=== PATIENT | male | born 1970 | race Caucasian/White ===

== ENCOUNTER 2024-04-22 10:18 | Outpatient (AMB) | payer BC, SELFPAY ==
[2024-04-22 10:50] VITALS: BP 120/70; PULSE 77; RESP 12; O2SAT 97; BMI 29.0
--- NOTE | 2024-04-22 10:50 | MHC.PC.OV ---
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 Patient reports he does not need refills at this time. Patient has a question regarding high cholesterol. Meeting/Event Planner Required: No Accompanied by: Spouse Followed by:: Jyoti Allergies No Known Allergies Allergy (Verified 04/22/24 10:57) Tobacco use date assessed: 04/22/24 Dental Screening Dental Screen Date: 04/22/24 Did you have a dental visit in the last 12 months?: Yes Did you have a dental problem in the last 6 months where you did not have access to dental care?: No Was dental information given to patient?: Patient has dentist HPI HPI Comments History of Present Illness Details The patient is a 54-year-old male with a past medical history of hyperlipidemia, hypertension, incomplete heart block hemorrhoids [facility] CV: He has a cardiology 09/2023 for chest discomfort and ALMANZA. This was thought to be musculoskeletal. As his blood pressure improved the symptoms seemed to cease. He is on lisinopril. BP at home 120s-140 systolic. He was taken off thiazide like diuretic due to hypokalemia Chronic tinnitus refer to ENT in November. Goes to [facility] for skin exams Had colonoscopy 12/26/2022. Repeat recommended in 10 years ROS CONSTITUTIONAL: Denies weight loss, fever and chills. HEENT: Denies changes in vision and hearing. RESPIRATORY: Denies SOB and cough. CV: Denies palpitations and CP GI: Denies abdominal pain, nausea, vomiting and diarrhea. : Denies dysuria and urinary frequency. MSK: Denies new myalgia and joint pain. SKIN: Denies rash and pruritus. NEUROLOGICAL: Denies headache. GOFF-behind eyes bilateral, snoring PSYCHIATRIC: Denies recent changes in mood. PHYSICAL EXAM: GENERAL: Alert and oriented x 3. NAD EYES: EOMI. Anicteric. HENT: Moist mucous membranes. No scleral icterus. No cervical lymphadenopathy. LUNGS: Clear to auscultation bilaterally. CARDIOVASCULAR: Regular rate and rhythm. No murmur. No JVD. ABDOMEN: Soft, non-tender +bs EXTREMITIES: No edema. Non-tender. SKIN: No rashes or lesions. Warm. NEUROLOGIC: No focal neurological deficits. CN II-XII grossly intact PSYCHIATRIC: Cooperative. Appropriate mood and affect [facility] Medical History (Updated 04/22/24 @ 13:39 by Lesly Ayers MD) Trigger finger, right middle finger Toenail fungus Incomplete RBBB Hemorrhoid Hypertension Surgical History No pertinent past surgical history Family History Mother Hypertension Father Hypertension Social History Household Members: Spouse Housing: House Alcohol intake: never Patient Tobacco Use Status: Former Tobacco user Tobacco use type: Cigarette Years Smoked: 7 e-Cigarette/Vaping Use: Never Used service: Yes Current occupational status: employed Current occupation: [employer] Current occupational exposures/hazards: No Cognitive needs: No Hearing needs: Yes Vision needs: Yes (Patient has seen the ophthalmology- September 2023) Questionnaire PHQ-9 Over the last 2 weeks, how often have you been bothered by any of the following problems? 1. Little interest or pleasure in doing things: not at all 2. Feeling down, depressed, or hopeless: not at all 3. Trouble falling or staying asleep, or sleeping too much: not at all 4. Feeling tired or having little energy: several days 5. Poor appetite or overeating: not at all 6. Feeling bad about yourself - or that you are a failure or have let yourself or your family down: not at all 7. Trouble concentrating on things, such as reading the newspaper or watching television: several days 8. Moving or speaking so slowly that other people could have noticed. Or the opposite - being so fidgety or restless that you have been moving around a lot more than usual: not at all 9. Thoughts that you would be better off or of hurting yourself in some way: not at all Total score: 2 Depression Screening Interpretation: Negative (neg) Depression Screening Done: Yes 73252 - PHQ-9 Billing: Yes Source: Developed by Drs. Major Welsh, Yessy Dominguez, Robin Webster and colleagues, with an educational ke from [employer]. Thrive Questionnaire Date Thrive assessed: 04/22/24 I am a: Patient What is your living situation today?: I have a steady place to live Within the past 12 months, did the food you bought not last and you didn't have the money to get more?: Never true Within the past 12 months, did you worry whether your food would run out before you got money to buy more?: Never true Do you have trouble paying for medicines?: No Do you have trouble getting transportation to medical appointments?: No Do you have trouble paying your heating and electricity bill?: No Do you have trouble taking care of your child, family member or friend?: No Do you have trouble with day-to-day activities such as bathing, preparing meals, shopping, managing finances, etc.?: No Are you currently unemployed and looking for a job?: No Are you interested in more education?: No Please select the resources that you would like help with: None Currently or been in a relationship where the following occur: No concerns reported THRIVE Score: 0 AUDIT C Alcohol Use Questionnaire (AUDIT-C) 1. How often do you have a drink containing alcohol?: Never 3. How often do you have six or more drinks on one occasion?: Never Total Score: 0 FLORENCIO-7 AMB Questionnaire FLORENCIO-7 Date FLORENCIO - 7 assessed: 04/22/24 Feeling nervous, anxious, or on edge: 0 = Not at all Not being able to stop or control worryin = Not at all Worrying too much about different things: 0 = Not at all Trouble relaxin = Not at all Being so restless that it is hard to sit still: 0 = Not at all Becoming easily annoyed or irritable: 0 = Not at all Feeling afraid as if something awful might happen: 0 = Not at all Total FLORENCIO-7 score (0-4 normal; 5-9 mild; 10-14 moderate; 15-21 severe): 0 Source: Developed by Drs. Major Welsh, Yessy Dominguez, Robin Webster and colleagues, with an educational ke from [employer]. FLORENCIO-7 Assessment Billing FLORENCIO-7 Assessment Tool: FLORENCIO-7 Assessment 69065 Physical exam (Primary Care) Vital Signs: Last Vital Signs Pulse 77 04/22/24 10:50 Resp 12 04/22/24 10:50 BP 120/70 04/22/24 10:50 Pulse Ox 97 04/22/24 10:50 BMI result Body Mass Index 29.0 Tobacco/Smoking Status: Tobacco use Status Tobacco use date assessed 04/22/24 04/22/24 11:07 Patient Tobacco Use Status Former Tobacco user 04/22/24 11:18 Tobacco use type Cigarette 04/22/24 11:18 e-Cigarette/Vaping Use Never Used 04/22/24 11:18 PHQ-9: PHQ-9 Score PHQ-9: Total score 2 04/22/24 13:32 Depression Screening Interpretation: Negative (neg) Thrive Assessment: Date of Thrive Assessment Date Thrive assessed 04/22/24 04/22/24 11:07 Currently or been in a relationship where the following occur: No concerns reported Assessment and Plan Assessment & Plan (1) Hyperlipidemia: Code(s): E78.5 - Hyperlipidemia, unspecified Qualifiers: Hyperlipidemia type: pure hypercholesterolemia Qualified Code(s): E78.00 - Pure hypercholesterolemia, unspecified (2) Hypertension: Code(s): I10 - Essential (primary) hypertension Qualifiers: Hypertension type: primary hypertension Qualified Code(s): I10 - Essential (primary) hypertension Plan: adequately controlled on current medication. monitor salt intake Orders: Orders Lipid Panel Today E78.5 - Hyperlipidemia, unspecified Medications: New lisinopril for refills 10 mg PO DAILY 90 tabs 3RF 90 days Coding Level of Care Code Est Pt Level 4 (89679) Complex EM visit Add On G2211 Diagnoses Pure hypercholesterolemia E78.00 Hyperlipidemia type: pure hypercholesterolemia Primary hypertension I10 Hypertension type: primary hypertension Additional Codes FLORENCIO-7 Assessment Billing - FLORENCIO-7 Assessment Tool: FLORENCIO-7 Assessment [id number] ([id number])
== END 2024-04-22 11:41 | disposition home or self-care (01) ==
PROVIDERS: Visit Provider Internal Medicine
DX: E78.00 Pure hypercholesterolemia, unspecified (principal); I10 Essential (primary) hypertension
CPT/HCPCS: 99214

== ENCOUNTER 2024-04-22 11:48 | Outpatient (REF) | payer BC, SELFPAY ==
[2024-04-22 15:03] LABS: Cholesterol 175 mg/dL (<200); HDL Cholesterol 35 mg/dL (>40); LDL Cholesterol Calculated 96 mg/dL (<100); Triglycerides 221 mg/dL (<150)
== END 2024-04-22 11:49 | disposition home or self-care (01) ==
LOC: HO.WFDLDS 11:48
PROVIDERS: Visit Provider Internal Medicine
DX: E78.5 Hyperlipidemia, unspecified (principal)
CPT/HCPCS: 36415; 80061

== ENCOUNTER 2025-02-17 08:20 | Outpatient (AMB) | payer BC, SELFPAY ==
--- NOTE | 2025-02-17 08:31 | MHC.PC.OV ---
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: No Allergies No Known Allergies Allergy (Verified 02/17/25 08:32) Tobacco use date assessed: 02/17/25 Dental Screening Dental Screen Date: 02/17/25 Did you have a dental visit in the last 12 months?: Yes Did you have a dental problem in the last 6 months where you did not have access to dental care?: No Was dental information given to patient?: Patient has dentist HPI HPI Comments History of Present Illness Details The patient is a 54-year-old male with a past medical history of hyperlipidemia, hypertension, incomplete heart block hemorrhoids presenting for CPE CV: He saw cardiology 09/2023 for chest discomfort and ALMANZA. This was thought to be musculoskeletal. As his blood pressure improved the symptoms seemed to cease. He still has left lateral chest pain intermittently, non exertional and transient. He has numbness in the left occiput, bilateral upper extremities-hands. Some but not severe neck and back pain. He is on lisinopril. BP at home 120s-130s He was taken off thiazide like diuretic due to hypokalemia Chronic tinnitus refer to ENT in November. He did not hear from the office. It is bilateral Goes to [facility] for skin exams Had colonoscopy 12/26/2022. Repeat recommended in 10 years ROS CONSTITUTIONAL: Denies weight loss, fever and chills. HEENT: Denies changes in vision and hearing. RESPIRATORY: Denies SOB and cough. CV: Denies palpitations and CP GI: Denies abdominal pain, nausea, vomiting and diarrhea. : Denies dysuria and urinary frequency. MSK: Denies new myalgia and joint pain. SKIN: foot rash NEUROLOGICAL: Denies headache. GOFF-behind eyes bilateral, snoring PSYCHIATRIC: Denies recent changes in mood. PHYSICAL EXAM: GENERAL: Alert and oriented x 3. NAD EYES: EOMI. Anicteric. HENT: Moist mucous membranes. No scleral icterus. No cervical lymphadenopathy. LUNGS: Clear to auscultation bilaterally. CARDIOVASCULAR: Regular rate and rhythm. No murmur. No JVD. ABDOMEN: Soft, non-tender +bs EXTREMITIES: No edema. Non-tender. SKIN: Mild tinea pedis NEUROLOGIC: No focal neurological deficits. CN II-XII grossly intact PSYCHIATRIC: Cooperative. Appropriate mood and affect [facility] Medical History (Updated 02/17/25 @ 08:58 by Lesly Ayers MD) Trigger finger, right middle finger Toenail fungus Incomplete RBBB Hemorrhoid Hypertension Surgical History No pertinent past surgical history Family History Mother Hypertension Father Hypertension Social History Household Members: Spouse Housing: House Alcohol intake: never Patient Tobacco Use Status: Former Tobacco user Tobacco use type: Cigarette Years Smoked: 7 e-Cigarette/Vaping Use: Never Used service: Yes Current occupational status: employed Current occupation: [employer] Current occupational exposures/hazards: No Cognitive needs: No Hearing needs: Yes Vision needs: Yes (Patient has seen the ophthalmology- September 2023) Questionnaire Thrive Questionnaire Date Thrive assessed: 04/22/24 AUDIT C Alcohol Use Questionnaire (AUDIT-C) 1. How often do you have a drink containing alcohol?: Never 3. How often do you have six or more drinks on one occasion?: Never Total Score: 0 FLORENCIO-7 AMB Questionnaire FLORENCIO-7 Date FLORENCIO - 7 assessed: 04/22/24 Source: Developed by Drs. Major Welsh, Yessy Dominguez, Robin Webster and colleagues, with an educational ke from [employer]. Physical exam (Primary Care) Vital Signs: Last Vital Signs Temp 97.9 F 02/17/25 08:33 Pulse 70 02/17/25 08:33 BP 128/82 02/17/25 08:33 Pulse Ox 96 02/17/25 08:33 Oxygen Delivery Method Room Air 02/17/25 08:33 BMI result Body Mass Index 28.4 Tobacco/Smoking Status: Tobacco use Status Tobacco use date assessed 02/17/25 02/17/25 08:37 Patient Tobacco Use Status Former Tobacco user 02/17/25 08:37 Tobacco use type Cigarette 02/17/25 08:37 e-Cigarette/Vaping Use Never Used 02/17/25 08:37 Thrive Assessment: Date of Thrive Assessment Date Thrive assessed 04/22/24 02/17/25 08:37 Coding Level of Care Code Est Pt Prev Care 40-64y(11491) Diagnoses Physical exam Z00.00 Primary hypertension I10 Hypertension type: primary hypertension Pure hypercholesterolemia E78.00 Hyperlipidemia type: pure hypercholesterolemia Cervical radiculopathy M54.12 Numbness of upper extremity R20.0 Assessment & Plan Assessment & Plan (1) Physical exam: Code(s): Z00.00 - Encounter for general adult medical examination without abnormal findings (2) Hypertension: Code(s): I10 - Essential (primary) hypertension Category: Medical Qualifiers: Hypertension type: primary hypertension Qualified Code(s): I10 - Essential (primary) hypertension (3) Hyperlipidemia: Code(s): E78.5 - Hyperlipidemia, unspecified Category: Medical Qualifiers: Hyperlipidemia type: pure hypercholesterolemia Qualified Code(s): E78.00 - Pure hypercholesterolemia, unspecified (4) Cervical radiculopathy: Code(s): M54.12 - Radiculopathy, cervical region Category: Medical (5) Numbness of upper extremity: Code(s): R20.0 - Anesthesia of skin Category: Medical Plan 54 year old male presenting for cpe Interval history reviewed HTN-well controlled Chest pain-likely musculoskeletal. Xrays ordered. CT coronary. Prior stress test reassuring tinea pedis-clotrimazole ordered Preventive measures for age up to date. Orders: Orders Complete Blood Count Auto Diff Today B35.3 - Tinea pedis, M54.12 - Radiculopathy, cervical region, M54.14 - Radiculopathy, thoracic region, R07.9 - Chest pain, unspecified, R20.0 - Anesthesia of skin, Z13.0 - Encounter for screening for diseases of the blood and blood-forming organs and certain disorders involving the immune mechanism, Z13.228 - Encounter for screening for other metabolic disorders Lipid Panel Today B35.3 - Tinea pedis, M54.12 - Radiculopathy, cervical region, M54.14 - Radiculopathy, thoracic region, R07.9 - Chest pain, unspecified, R20.0 - Anesthesia of skin, Z13.0 - Encounter for screening for diseases of the blood and blood-forming organs and certain disorders involving the immune mechanism, Z13.228 - Encounter for screening for other metabolic disorders Vitamin B12 and Folate Today B35.3 - Tinea pedis, M54.12 - Radiculopathy, cervical region, M54.14 - Radiculopathy, thoracic region, R07.9 - Chest pain, unspecified, R20.0 - Anesthesia of skin, Z13.0 - Encounter for screening for diseases of the blood and blood-forming organs and certain disorders involving the immune mechanism, Z13.228 - Encounter for screening for other metabolic disorders XR thoracic spine 3V Today B35.3 - Tinea pedis, M54.12 - Radiculopathy, cervical region, M54.14 - Radiculopathy, thoracic region, R07.9 - Chest pain, unspecified, R20.0 - Anesthesia of skin, Z13.0 - Encounter for screening for diseases of the blood and blood-forming organs and certain disorders involving the immune mechanism, Z13.228 - Encounter for screening for other metabolic disorders XR ribs LT 2V Today R07.9 - Chest pain, unspecified Comprehensive Met. Panel Today B35.3 - Tinea pedis, M54.12 - Radiculopathy, cervical region, M54.14 - Radiculopathy, thoracic region, R07.9 - Chest pain, unspecified, R20.0 - Anesthesia of skin, Z13.0 - Encounter for screening for diseases of the blood and blood-forming organs and certain disorders involving the immune mechanism, Z13.228 - Encounter for screening for other metabolic disorders Lyme IgG/IgM w/reflex to WB Today B35.3 - Tinea pedis, M54.12 - Radiculopathy, cervical region, M54.14 - Radiculopathy, thoracic region, R07.9 - Chest pain, unspecified, R20.0 - Anesthesia of skin, Z13.0 - Encounter for screening for diseases of the blood and blood-forming organs and certain disorders involving the immune mechanism, Z13.228 - Encounter for screening for other metabolic disorders Hemoglobin A1c Today B35.3 - Tinea pedis, M54.12 - Radiculopathy, cervical region, M54.14 - Radiculopathy, thoracic region, R07.9 - Chest pain, unspecified, R20.0 - Anesthesia of skin, Z13.0 - Encounter for screening for diseases of the blood and blood-forming organs and certain disorders involving the immune mechanism, Z13.228 - Encounter for screening for other metabolic disorders XR cervical spine 4V Today B35.3 - Tinea pedis, M54.12 - Radiculopathy, cervical region, M54.14 - Radiculopathy, thoracic region, R07.9 - Chest pain, unspecified, R20.0 - Anesthesia of skin, Z13.0 - Encounter for screening for diseases of the blood and blood-forming organs and certain disorders involving the immune mechanism, Z13.228 - Encounter for screening for other metabolic disorders CT Cardiac Coronary Angio Today Referrals Ear/Nose/Throat Referral H93.19 - Tinnitus, unspecified ear Medications: New clotrimazole 1% 1 appl topical BID 45 grams 2RF 4 weeks Refilled lisinopril for refills 10 mg PO DAILY 90 tabs 3RF 90 days
[2025-02-17 08:33] VITALS: BP 128/82; PULSE 70; TEMP 36.6; O2SAT 96; BMI 28.4
== END 2025-02-17 09:09 | disposition home or self-care (01) ==
LOC: HO.HMCFM 08:21
PROVIDERS: PCP Internal Medicine; Visit Provider Internal Medicine
DX: Z00.00 Encounter for general adult medical examination without abnormal findings (principal); I10 Essential (primary) hypertension; E78.00 Pure hypercholesterolemia, unspecified; M54.12 Radiculopathy, cervical region; R20.0 Anesthesia of skin

== ENCOUNTER 2025-02-17 09:21 | Outpatient (REF) | payer BC, SELFPAY ==
[2025-02-17 11:15] LABS: MANUAL DIFF FLAG NO
[2025-02-17 11:18] LABS: Basophils Absolute Auto 0.1 X10*3/uL (0.0-0.2); Basophils Percent Auto 0.8 % (0-2); Eosinophils Absolute Auto 0.2 X10*3/uL (0.0-0.4); Eosinophils Percent Auto 2.2 % (0-4); Hematocrit 44.9 % (42.0-52.0); Hemoglobin 14.8 g/dl (14.0-18.0); Imm Gran Abs Auto 0.04 X10*3/uL (0.00-0.03); Imm Gran Pct Auto 0.5 % (0.0-0.4); Lymphocytes Absolute Auto 2.1 X10*3/uL (1.2-4.9); Lymphocytes Percent Auto 26.6 % (20-40); Mean Corpuscular Hemoglobin 30.5 pg (27.0-33.0); Mean Corpuscular Volume 92.4 fL (80.0-98.0); Mean Platelet Volume 10.4 fL (9.4-12.4); Monocytes Absolute Auto 0.5 X10*3/uL (0.1-1.2); Monocytes Percent Auto 5.9 % (2-11); Platelet Count 236 X10*3/uL (160-400); Red Blood Count 4.86 X10*6/uL (4.60-5.80); Red Cell Distribution Width 11.9 % (11.0-16.0); White Blood Count 7.7 X10*3/uL (4.8-10.8)
[2025-02-17 11:31] LABS: Estimated Average Glucose 94 mg/dL; Hemoglobin A1c % 4.9 % (<6.0)
[2025-02-17 11:46] LABS: Alanine Aminotransferase 30 U/L (0-40); Albumin Level 4.7 g/dL (3.5-5.0); Alkaline Phosphatase 85 U/L (39-117); Anion Gap 10 (12-20); Aspartate Amino Transferase 26 U/L (5-37); Bilirubin Total 0.7 mg/dL (0.0-1.0); Blood Urea Nitrogen 18 mg/dL (9-16); Calcium 9.5 mg/dL (8.4-10.2); Carbon Dioxide 28 mmol/L (22-29); Chloride 109 mmol/L (96-108); Cholesterol 157 mg/dL (<200); Estimated Glomerular Filt Rate > 60; Glucose Random 98 mg/dL (60-115); HDL Cholesterol 38 mg/dL (>40); LDL Cholesterol Calculated 99 mg/dL (<100); Potassium 4.1 mmol/L (3.3-5.1); Sodium 143 mmol/L (135-145); Total Protein 7.5 g/dL (6.5-8.0); Triglycerides 102 mg/dL (<150)
[2025-02-17 12:24] LABS: Folate 9.2 ng/mL (> or = 4.0); Vitamin B12 454 pg/mL (200-900)
[2025-02-19 09:08] LABS: Lyme Abs Screen <0.90 index
== END 2025-02-17 09:22 | disposition home or self-care (01) ==
LOC: HO.WFDLDS 09:21
PROVIDERS: Visit Provider Internal Medicine
DX: R20.0 Anesthesia of skin (principal); M54.12 Radiculopathy, cervical region; M54.14 Radiculopathy, thoracic region; Z13.0 Encounter for screening for diseases of the blood and blood-forming organs and certain disorders involving the immune mechanism; Z13.228 Encounter for screening for other metabolic disorders; B35.3 Tinea pedis; R07.9 Chest pain, unspecified
CPT/HCPCS: 36415; 80053; 80061; 82607; 82746; 83036; 85025; 86617; 86618

== ENCOUNTER 2025-02-19 11:30 | Outpatient (REF) | payer BC, SELFPAY ==
--- NOTE | ~2025-02-19 | XR_ITS ---
EXAMINATION: XR RIBS 2 VIEWS LEFT HISTORY: R07.9 - Chest pain, unspecified COMPARISON: There are no prior studies available for comparison. FINDINGS: Four views of the left ribs are submitted. Osseous mineralization is normal. No fracture or lytic lesion is identified. XR/XR ribs LT 2V IMPRESSION: No evidence of fracture of the left ribs. Electronically signed by: Major Tolbert MD 02/19/2025 12:38 PM EDT
--- NOTE | ~2025-02-19 | XR_ITS ---
EXAMINATION: XR CERVICAL SPINE 4-5 VIEWS HISTORY: R20.0 - Anesthesia of skin COMPARISON: There are no prior studies available for comparison. FINDINGS: AP, lateral, bilateral oblique, and open-mouth odontoid views of the cervical spine are submitted. Osseous mineralization is normal. Seven cervical vertebral bodies are identified maintaining normal height and alignment without evidence of fracture or subluxation. There is moderate degenerative disc disease with disc space narrowing and osteophyte formation. There is uncovertebral joint and facet osteoarthritis causing right neural foraminal stenosis at the C4-5 and C5-6 levels and left neural foraminal stenosis at the C3-4, C4-5, C5-6, and C7-T1 levels. The odontoid and lateral masses of C1 are intact. There is no prevertebral soft tissue swelling. XR/XR cervical spine 4V IMPRESSION: Degenerative changes of the cervical spine as described. Electronically signed by: Major Tolbert MD 02/19/2025 12:41 PM EDT
--- NOTE | ~2025-02-19 | XR_ITS ---
EXAMINATION: XR THORACIC SPINE CLINICAL INFORMATION: R20.0 - Anesthesia of skin COMPARISON: None available. TECHNIQUE: 3 views of the thoracic spine were obtained. FINDINGS: There is a minimal levoconvex scoliosis of the upper thoracic spine. There is a normal kyphosis. There is normal alignment without subluxation. There are no fractures, compression deformity, or suspicious bone lesions. There is normal facet alignment. There are mild degenerative disc changes throughout the thoracic spine. The paravertebral soft tissues, imaged mediastinal structures and lungs appear normal. Aortic mural calcification noted. XR/XR thoracic spine 3V IMPRESSION: 1. Mild degenerative spondylosis of the thoracic spine. No acute bony findings. Electronically signed by: Rangel Townsend MD 02/19/2025 12:33 PM EDT
== END 2025-02-19 11:31 | disposition home or self-care (01) ==
LOC: HO.XRAY 11:30
PROVIDERS: PCP Internal Medicine; Visit Provider Internal Medicine
DX: R20.0 Anesthesia of skin (principal); M54.12 Radiculopathy, cervical region; M54.14 Radiculopathy, thoracic region; Z13.0 Encounter for screening for diseases of the blood and blood-forming organs and certain disorders involving the immune mechanism; Z13.228 Encounter for screening for other metabolic disorders; B35.3 Tinea pedis; R07.9 Chest pain, unspecified
CPT/HCPCS: 71100; 72050; 72072

== ENCOUNTER → 2025-02-19 11:58 | Outpatient (BNV) | payer BC, SELFPAY | PROVIDERS: PCP Internal Medicine; Visit Provider Radiology Diagnostic Radiology | DX: M50.30 Other cervical disc degeneration, unspecified cervical region (principal); M47.814 Spondylosis without myelopathy or radiculopathy, thoracic region; R07.9 Chest pain, unspecified | CPT/HCPCS: 71100; 72050; 72072 ==

== ENCOUNTER 2025-07-14 13:49 | Outpatient (AMB) | payer BC, SELFPAY ==
--- NOTE | 2025-07-14 13:55 | MHC.PC.OV ---
Vital Signs 07/14/25 14:05 07/14/25 14:17 Height 5 ft 9.5 in Weight 198 lb BMI 28.8 BP 110/72 138/78 Blood Pressure Location Rt brachial Rt brachial Position Sitting Sitting Respiration 12 Pulse 72 Pulse Source Pulse Oximeter Temp 98 F Temp Source Oral Pulse Oximetry (%) 97 Oxygen Delivery Method Room Air Intake Visit Reasons: Dizziness - see comments Intake Note: Dizziness. Left sided pain under ribs. Symptoms started in January. CT that was ordered last appt was denied. Service Or Work Dispatcher Required: No Allergies No Known Allergies Allergy (Verified 07/14/25 14:07) Tobacco use date assessed: 07/14/25 Dental Screening Dental Screen Date: 02/17/25 HPI HPI Comments History of Present Illness Details The patient is a 55-year-old male with a past medical history of hyperlipidemia, hypertension, incomplete heart block hemorrhoids presenting for follow up CV: He is on lisinopril. BP at home 120s-130s He was taken off thiazide like diuretic due to hypokalemiaHe saw cardiology 09/2023 for chest discomfort and ALMANZA. This was thought to be musculoskeletal. At his physical in January 2025 he still reported complaints of left lateral chest pain, and endorsed pain intermittely in central chest. Rib was normal. Thoracic xr mild xray. Coronary calcium was ordered but not scheduled. Now with persistent symptoms and breathing tightness, decreased exercise capacity. He has numbness in the base of the skull with bilateral upper extremities-hands. Some but not severe neck and back pain. xr cervical spine There is moderate degenerative disc disease with disc space narrowing and osteophyte formation. There is uncovertebral joint and facet osteoarthritis causing right neural foraminal stenosis at the C4-5 and C5-6 levels and left neural foraminal stenosis at the C3-4, C4-5, C5-6, and C7-T1 levels. The odontoid and lateral masses of C1 are intact. Chronic tinnitus refer to ENT in November. It is bilateral. Stable Goes to [facility] for skin exams Had colonoscopy 12/26/2022. Repeat recommended in 10 years ROS see HPI PHYSICAL EXAM: GENERAL: Alert and oriented x 3. NAD EYES: EOMI. Anicteric. HENT: Moist mucous membranes. No scleral icterus. No cervical lymphadenopathy. LUNGS: Clear to auscultation bilaterally. CARDIOVASCULAR: Regular rate and rhythm. No murmur. No JVD. ABDOMEN: Soft, non-tender +bs EXTREMITIES: No edema. Non-tender. SKIN: Mild tinea pedis NEUROLOGIC: No focal neurological deficits. CN II-XII grossly intact PSYCHIATRIC: Cooperative. Appropriate mood and affect [facility] Medical History Trigger finger, right middle finger Toenail fungus Incomplete RBBB Hemorrhoid Hypertension Surgical History No pertinent past surgical history Family History Mother Hypertension Father Hypertension Social History Household Members: Spouse Housing: House 75 years or older and lives alone: No Alcohol intake: never Patient Tobacco Use Status: Former Tobacco user Tobacco use type: Cigarette Years Smoked: 7 e-Cigarette/Vaping Use: Never Used Use of substances other than those prescribed or required for medical reasons: No service: Yes Current occupational status: employed Current occupation: [employer] Current occupational exposures/hazards: No Cognitive needs: No Hearing needs: Yes Vision needs: Yes (Patient has seen the ophthalmology- September 2023) Questionnaire PHQ-9 Over the last 2 weeks, how often have you been bothered by any of the following problems? 1. Little interest or pleasure in doing things: several days 2. Feeling down, depressed, or hopeless: several days 3. Trouble falling or staying asleep, or sleeping too much: not at all 4. Feeling tired or having little energy: several days 5. Poor appetite or overeating: not at all 6. Feeling bad about yourself - or that you are a failure or have let yourself or your family down: not at all 7. Trouble concentrating on things, such as reading the newspaper or watching television: not at all 8. Moving or speaking so slowly that other people could have noticed. Or the opposite - being so fidgety or restless that you have been moving around a lot more than usual: not at all 9. Thoughts that you would be better off or of hurting yourself in some way: not at all Total score: 3 Depression Screening Interpretation: Negative Depression Screening Done: Yes 81811 - PHQ-9 Billing: Yes Source: Developed by Drs. Major Welsh, Robin Trejo and colleagues, with an educational ke from [employer]. Thrive Questionnaire Date Thrive assessed: 07/16/25 I am a: Patient What is your living situation today?: I have a steady place to live Within the past 12 months, did the food you bought not last and you didn't have the money to get more?: Never true Within the past 12 months, did you worry whether your food would run out before you got money to buy more?: Never true Do you have trouble paying for medicines?: No Do you have trouble getting transportation to medical appointments?: No Do you have trouble paying your heating and electricity bill?: No Do you have trouble taking care of your child, family member or friend?: No Do you have trouble with day-to-day activities such as bathing, preparing meals, shopping, managing finances, etc.?: No Are you currently unemployed and looking for a job?: Yes Are you interested in more education?: No Please select the resources that you would like help with: None Currently or been in a relationship where the following occur: No concerns reported THRIVE Score: 0 AUDIT C Alcohol Use Questionnaire (AUDIT-C) 1. How often do you have a drink containing alcohol?: Never 3. How often do you have six or more drinks on one occasion?: Never Total Score: 0 FLORENCIO-7 AMB Questionnaire FLORENCIO-7 Date FLORENCIO - 7 assessed: 07/16/25 Feeling nervous, anxious, or on edge: 0 = Not at all Not being able to stop or control worryin = Not at all Worrying too much about different things: 0 = Not at all Trouble relaxin = Not at all Being so restless that it is hard to sit still: 0 = Not at all Becoming easily annoyed or irritable: 0 = Not at all Feeling afraid as if something awful might happen: 0 = Not at all Total FLORENCIO-7 score (0-4 normal; 5-9 mild; 10-14 moderate; 15-21 severe): 0 Source: Developed by Yessy Vergara Kurt Kroenke and colleagues, with an educational ke from [employer]. FLORENCIO-7 Assessment Billing FLORENCIO-7 Assessment Tool: FLORENCIO-7 Assessment 81755 Physical exam (Primary Care) Vital Signs: Last Vital Signs Temp 98 F 07/14/25 14:05 Pulse 72 07/14/25 14:05 Resp 12 07/14/25 14:05 BP 138/78 07/14/25 14:17 Pulse Ox 97 07/14/25 14:05 Oxygen Delivery Method Room Air 07/14/25 14:05 BMI result Body Mass Index 28.8 Tobacco/Smoking Status: Tobacco use Status Tobacco use date assessed 07/14/25 07/14/25 14:11 Patient Tobacco Use Status Former Tobacco user 07/14/25 13:56 Tobacco use type Cigarette 07/14/25 13:56 e-Cigarette/Vaping Use Never Used 07/14/25 13:56 PHQ-9: PHQ-9 Score PHQ-9: Total score 3 07/16/25 10:57 Depression Screening Interpretation: Negative Thrive Assessment: Date of Thrive Assessment Date Thrive assessed 07/16/25 07/16/25 10:57 Currently or been in a relationship where the following occur: No concerns reported Coding Level of Care Code Complex visit Add On G2211 Diagnoses Cervical radiculopathy M54.12 Numbness of upper extremity R20.0 Additional Codes FLORENCIO-7 Assessment Billing - FLORENCIO-7 Assessment Tool: FLORENCIO-7 Assessment 52513 ([id number]) PHQ-9 - 63772 - PHQ-9 Billing: Yes ([id number]) Assessment & Plan Assessment & Plan (1) Cervical radiculopathy: Code(s): M54.12 - Radiculopathy, cervical region Category: Medical (2) Numbness of upper extremity: Code(s): R20.0 - Anesthesia of skin Category: Medical Plan 55 year old for follow up Continues chest pain, decreased exertional capacity. CT chest. Cardiology referral Neck pain, bilateral upper extremity numbness-MRI cervical spine CV: blood pressure well controlled. Refer cardiology Orders: Orders MR cervical spine wo con 07/14/25 M54.12 - Radiculopathy, cervical region, M79.603 - Pain in arm, unspecified, R20.0 - Anesthesia of skin CT chest wo IV con 07/14/25 M54.14 - Radiculopathy, thoracic region, R07.9 - Chest pain, unspecified Referrals Cardiology Referral R07.9 - Chest pain, unspecified, R42 - Dizziness and giddiness
[2025-07-14 14:05] VITALS: BP 110/72; PULSE 72; RESP 12; TEMP 36.6; O2SAT 97; BMI 28.8
[2025-07-14 14:17] VITALS: BP 138/78
== END 2025-07-14 14:41 | disposition home or self-care (01) ==
LOC: HO.HMCFM 13:50
PROVIDERS: PCP Internal Medicine; Visit Provider Internal Medicine
DX: M54.12 Radiculopathy, cervical region (principal); R20.0 Anesthesia of skin

== ENCOUNTER → 2025-07-14 13:49 | Outpatient (BNVA) | payer BC, SELFPAY | PROVIDERS: PCP Internal Medicine; Visit Provider Internal Medicine | DX: M54.12 Radiculopathy, cervical region (principal); R20.0 Anesthesia of skin; R07.9 Chest pain, unspecified; I10 Essential (primary) hypertension; E78.5 Hyperlipidemia, unspecified; H93.13 Tinnitus, bilateral; Z79.899 Other long term (current) drug therapy; Z13.31 Encounter for screening for depression | CPT/HCPCS: 96127 ==

== ENCOUNTER 2025-08-25 09:04 | Outpatient (AMB) | payer BC, SELFPAY ==
--- NOTE | 2025-08-25 09:08 | A.OFFPC_ITS ---
Vital Signs 08/25/25 09:11 Height 5 ft 9.5 in Weight 195 lb 4 oz BMI 28.4 BP 137/71 Blood Pressure Location Rt brachial Position Sitting Respiration 14 Pulse 74 Pulse Source Pulse Oximeter Temp 98.1 F Temp Source Oral Pulse Oximetry (%) 94 Oxygen Delivery Method Room Air Intake Visit Reasons: htn f/up Intake Note: Follow up Allergies No Known Allergies Allergy (Verified 07/14/25 14:07) Tobacco use date assessed: 08/25/25 Dental Screening Dental Screen Date: 02/17/25 HPI HPI Comments History of Present Illness Details The patient is a 55-year-old male with a past medical history of hyperlipidemia, hypertension, incomplete heart block hemorrhoids presenting for follow up CV: He is on lisinopril-just increased to 30mg. BP at home 120s-130s He was taken off thiazide like diuretic due to . saw cardiology 09/2023 for chest discomfort and ALMANZA. This was thought to be musculoskeletal. At his physical in January 2025 he still reported complaints of left lateral chest pain, and endorsed pain intermittently in central chest. Rib xray was normal. Thoracic xr mild arthritic changes. Coronary calcium was ordered but not scheduled. CT chest was denied by insurance. Now with persistent symptoms and breathing tightness, decreased exercise capacity. He has numbness in the base of the skull with bilateral upper extremities-hands. MSK: Some but not severe neck and back pain though he has significant numbness and some weakness of the bilateral upper extremities especially when laying. He has numbness in the base of the skull with bilateral upper extremities-hands. xr cervical spine. MRI was ordered but not scheduled There is moderate degenerative disc disease with disc space narrowing and osteophyte formation. There is uncovertebral joint and facet osteoarthritis causing right neural foraminal stenosis at the C4-5 and C5-6 levels and left neural foraminal stenosis at the C3-4, C4-5, C5-6, and C7-T1 levels. The odontoid and lateral masses of C1 are intact. Chronic tinnitus refer to ENT in November. It is bilateral. Stable-upcoming appt in Spring Goes to [facility] for skin exams Had colonoscopy 12/26/2022. Repeat recommended in 10 years ROS see HPI PHYSICAL EXAM: GENERAL: Alert and oriented x 3. NAD EYES: EOMI. Anicteric. HENT: Moist mucous membranes. No scleral icterus. No cervical lymphadenopathy. LUNGS: Clear to auscultation bilaterally. CARDIOVASCULAR: Regular rate and rhythm. No JVD. ABDOMEN: Soft, non-tender +bs EXTREMITIES: No edema. Non-tender. SKIN: Mild tinea pedis NEUROLOGIC: No focal neurological deficits. CN II-XII grossly intact PSYCHIATRIC: Cooperative. Appropriate mood and affect [facility] Medical History Trigger finger, right middle finger Toenail fungus Incomplete RBBB Hemorrhoid Hypertension Surgical History No pertinent past surgical history Family History Mother Hypertension Father Hypertension Social History Household Members: Spouse Housing: House 75 years or older and lives alone: No Alcohol intake: never Patient Tobacco Use Status: Former Tobacco user Tobacco use type: Cigarette Years Smoked: 7 e-Cigarette/Vaping Use: Never Used service: Yes Current occupational status: employed Current occupation: [employer] Current occupational exposures/hazards: No Cognitive needs: No Hearing needs: Yes Vision needs: Yes (Patient has seen the ophthalmology- September 2023) Questionnaire Thrive Questionnaire Date Thrive assessed: 07/14/25 I am a: Patient What is your living situation today?: I have a steady place to live Within the past 12 months, did the food you bought not last and you didn't have the money to get more?: Never true Within the past 12 months, did you worry whether your food would run out before you got money to buy more?: Never true Do you have trouble paying for medicines?: No Do you have trouble getting transportation to medical appointments?: No Do you have trouble paying your heating and electricity bill?: No Do you have trouble taking care of your child, family member or friend?: No Do you have trouble with day-to-day activities such as bathing, preparing meals, shopping, managing finances, etc.?: No Are you currently unemployed and looking for a job?: Yes Are you interested in more education?: No Currently or been in a relationship where the following occur: No concerns reported THRIVE Score: 0 AUDIT C Alcohol Use Questionnaire (AUDIT-C) 1. How often do you have a drink containing alcohol?: Monthly or less 2. How many drinks containing alcohol do you have on a typical day when you are drinking?: 1 or 2 3. How often do you have six or more drinks on one occasion?: Never Total Score: 1 FLORENCIO-7 AMB Questionnaire FLORENCIO-7 Date FLORENCIO - 7 assessed: 07/16/25 Source: Developed by Drs. Major Welsh, Yessy Dominguez, Robin Webster and colleagues, with an educational ke from [employer]. Physical exam (Primary Care) Vital Signs: Last Vital Signs Temp 98.1 F 08/25/25 09:11 Pulse 74 08/25/25 09:11 Resp 14 08/25/25 09:11 BP 137/71 08/25/25 09:11 Pulse Ox 94 08/25/25 09:11 Oxygen Delivery Method Room Air 08/25/25 09:11 BMI result Body Mass Index 28.4 Tobacco/Smoking Status: Tobacco use Status Tobacco use date assessed 08/25/25 08/25/25 09:14 Patient Tobacco Use Status Former Tobacco user 08/25/25 09:09 Tobacco use type Cigarette 08/25/25 09:09 e-Cigarette/Vaping Use Never Used 08/25/25 09:09 Thrive Assessment: Date of Thrive Assessment Date Thrive assessed 07/14/25 08/25/25 09:09 Currently or been in a relationship where the following occur: No concerns reported Coding Level of Care Code Est Pt Level 4 (88014) Diagnoses Cervical radiculopathy M54.12 Chest pain, unspecified type R07.9 Chest pain type: unspecified Pain and numbness of upper extremity M79.603; R20.0 Assessment & Plan Assessment & Plan (1) Cervical radiculopathy: Code(s): M54.12 - Radiculopathy, cervical region Category: Medical (2) Chest pain: Code(s): R07.9 - Chest pain, unspecified Category: Medical Qualifiers: Chest pain type: unspecified Qualified Code(s): R07.9 - Chest pain, unspecified (3) Pain and numbness of upper extremity: Code(s): M79.603 - Pain in arm, unspecified; R20.0 - Anesthesia of skin Category: Medical Plan Cervical radiculopathy, upper extremity numbness weakness-MRI cervical spine has been ordered Chest pain, shortness of breath-stress test pending. Had CXR. CT chest previously denied by insurance Hypertension-BP is borderline on current medication
[2025-08-25 09:11] VITALS: BP 137/71; PULSE 74; RESP 14; TEMP 36.7; O2SAT 94; BMI 28.4
--- OUTSIDE RECORDS SUMMARY | 2025-08-25 09:23 | XMS_ITS | Clinical Summary ---
Author Organization [facility] Address [address] [place] [phone] Phone Care Team Providers Care Supervisor Varnish Name Role Phone Lesly Marsh MD Primary Care Provider Allergies No known active allergies Medications losartan (COZAAR) 50 MG tablet Take by mouth. 12/20/2022 Active omega 3-zjp-btp-fish oil (FISH OIL) 100-160-1,000 mg Cap 2 qd Active multivitamin per tablet Take 1 tablet by mouth daily. Active Social History Tobacco Use Types Packs/Day Years Used Date Smoking Tobacco: Never Assessed Education Answer Date Recorded Are you interested in more education? Not on julio c e 06/18/2023 Are you concerned about learning? Not on file 06/18/2023 No 06/18/2023 No 06/18/2023 Digital Access Answer Date Recorded No 06/18/2023 No 06/18/2023 Reliable internet access at home? Not on file 06/18/2023 Device with a working camera? Not on file Sex and Gender Information Value Date Recorded Sex Assigned at Not on file Legal Sex Male 9:07 AM EDT Gender Identity Not on file Sexual Orientation Not on file Last Filed Vital Signs Vital Sign Reading Time Taken Comments Blood Pressure 139/82 06/18/2023 9:18 AM EDT Pulse 71 06/18/2023 9:18 AM EDT Temperature 36.4 C (97.5 F) 06/18/2023 9:18 AM EDT Respiratory Rate 17 06/18/2023 9:18 AM EDT Oxygen Saturation 98% 06/18/2023 9:18 AM EDT Inhaled Oxygen Concentration - - Weight 88.5 kg (195 lb) 06/18/2023 9:18 AM EDT Height 177.8 cm (5' 10 ) 06/18/2023 9:18 AM EDT Body Mass Index 27.98 06/18/2023 9:18 AM EDT Plan of Treatment Health Maintenance Due Date Last Done Comments CREATININE LEVEL 1969 LIPID PANEL 1969 POTASSIUM LEVEL 1969 DEPRESSION SCREENING 1981 SMOKING Hx and SMOKELESS TOBACCO SCREENING 1982 HEPATITIS C SCREENING 1987 HIV ONE-TIME SCREENING (18-6 5 YEARS) 1987 SCREENING FOR DIABETES 2004 COLOGUARD 2014 COLONOSCOPY 2014 COLORECTAL CANCER SCREENING 2014 FIT TEST 2014 FOBT 2014 SIGMOIDOSCOPY 2014 VIRTUAL COLONOSCOPY 2014 PNEUMOCOCCAL VACCINES (50+ years) (1 of 1 - PCV) 2019 ZOSTER VACCINES (1 of 2) 2019 INFLUENZA VACCINE (#1) 2025 2, 05/28/2010, 07/29/2007 COVID-19 VACCINE (3 - 2024-2 6 season) 2025 01/04/2021, 12/14/2020 Adult Td,Tdap Booster 06/29/2032 06/29/2022 , 10/08/2012, 06/28/2005 RSV VACCINE (1 - 1-dose 75+ series) 2044 HEPATITIS A VACCINES Aged Out No long er eligible based on patient's age to complete this topic HIB VACCINES Aged Out No longer eligi ble based on patient's age to complete this topic MENINGOCOCCAL VACCINES (ACWY) Aged Out No longer eligible based on patient's age to complete this topic MENINGOCOCCAL VACCINES (B) Aged Out N o longer eligible based on patient's age to complete this topic Medical Devices Not on file Insurance [facility] [place] [address] [place] [address] [facility] Care Teams Supervisor Varnish Relationship Specialty Start Date End Date Lesly Marsh MD PCP - General 06/18/23 Additional Source Comments The information contained in this document represents components of the legal health record. It is not the complete legal health record.[facility]
--- OUTSIDE RECORDS SUMMARY | 2025-08-25 09:23 | XMS_ITS ---
Author Name [facility] Organization Unknown Care Team Organization Name Specialty Phone Email Start Date End Da te [facility] Suraj Hwang Primary Care 09/05/202203/28 [facility] Termed, PROVIDER Primary Care 07/05/202203/28
== END 2025-08-25 09:32 | disposition home or self-care (01) ==
LOC: HO.HMCFM 09:05
PROVIDERS: PCP Internal Medicine; Visit Provider Internal Medicine
DX: M54.12 Radiculopathy, cervical region (principal); R07.9 Chest pain, unspecified; M79.603 Pain in arm, unspecified; R20.0 Anesthesia of skin